=== PATIENT | female | born 1980 | race Asian ===

== ENCOUNTER 2017-01-17 06:22 | Emergency (ER) | payer OTHER ==
[2017-01-17 06:44] VITALS: BMI 23.8
[2017-01-17] MEDS ORDERED: KETOROLAC TROMETHAMINE 30 MG/1 ML VIAL ONE (07:10)
--- NOTE | 2017-01-17 07:23 | PDOC ---
History of Present Illness - General Chief Complaint: Shortness of Breath Stated Complaint: DIFFICULTY BREATHING History Source: Patient Exam Limitations: No Limitations - History of Present Illness Initial Comments: 01/17/17 07:22 Patient is a 37-year-old female with history of occasional asthma, cholecystectomy, hernia repair, complaining off right-sided chest pain 2 days. States the pain started in her right upper chest in the shoulder area, with pain on inspiration. This morning she had pain in the right mid lateral chest, which was an 8/10 and worse with breathing. States that she was having a difficult time taking a deep breath in due to the pain. States she has been exposed to family members had colds and bronchitis and pneumonia. She states she drove to [place] 7 hours during the . However denies leg swelling or pain. She had a brief asthma attack 1 days ago after drinking a beer which has sulfa in it. She is was on Macrobid for UTI completed her course of week ago. Denies fever, chills, nausea, vomiting, cough. PMD: Dr. Gloria PMHx: as above PSOCHX; neg cig, neg drug, neg etoh ALL: PCN, Sulfa GENERAL/CONSTITUTIONAL: [No fever or chills. No weakness. No weight change.] HEAD, EYES, EARS, NOSE AND THROAT: [No change in vision. No ear pain or discharge. No sore throat.] CARDIOVASCULAR: [No chest pain or shortness of breath.] RESPIRATORY: (+) cough, wheezing,(-) hemoptysis.] GASTROINTESTINAL: [No nausea, vomiting, diarrhea or constipation. No rectal bleeding.] GENITOURINARY: [No dysuria, frequency, or change in urination.] MUSCULOSKELETAL: [No joint or muscle swelling or pain. No neck or back pain.] SKIN AND BREASTS: [No rash or easy bruising.] NEUROLOGIC: [No headache, vertigo, loss of consciousness, or loss of sensation.] PSYCHIATRIC: [No depression or anxiety.] ENDOCRINE: [No increased thirst. No abnormal weight change.] HEMATOLOGIC/LYMPHATIC: [No anemia, easy bleeding, or history of blood clots.] ALLERGIC/IMMUNOLOGIC: [No hives or skin allergy. No latex allergy.] GENERAL: [The patient is awake, alert, and fully oriented, in mild painful distress with breathing] HEAD: [Normal with no signs of trauma.] EYES: [Pupils equal, round and reactive to light, extraocular movements intact, sclera anicteric, conjunctiva clear.] ENT: [Ears normal, nares patent, oropharynx clear without exudates. Moist mucous membranes.] NECK: [Normal range of motion, supple without lymphadenopathy, JVD, or masses.] LUNGS: [Breath sounds equal, clear to auscultation bilaterally. No wheezes, and no crackles.] HEART: [Regular rate and rhythm, normal S1 and S2 without murmur, rub.] ABDOMEN: [Soft, nontender, normoactive bowel sounds. No guarding, no rebound. No masses.] EXTREMITIES: [Normal range of motion, no edema. No clubbing or cyanosis. No cords, erythema, or tenderness.] NEUROLOGICAL: [Cranial nerves II through XII grossly intact. Normal speech, normal gait.] PSYCH: [Normal mood, normal affect.] SKIN: [Warm, Dry, normal turgor, no rashes or lesions noted.] Past History - Past Medical History Allergies/Adverse Reactions: Allergies Allergy/AdvReac Type Severity Reaction Status Date / Time latex Allergy Verified 01/17/17 06:35 Home Medications: Ambulatory Orders No Home Medications 0 dose .ROUTE UTDICT 02/28/12 Asthma: Yes COPD: No Other medical history: denies - Suicide/Smoking/Psychosocial Hx Smoking Status: Yes Smoking History: Never smoked Have you smoked in the past 12 months: No Number of Cigarettes Smoked Daily: 10 Information on smoking cessation initiated: No Hx Alcohol Use: No Drug/Substance Use Hx: No Substance Use Type: None *Physical Exam - Vital Signs Last Vital Signs Temp Pulse Resp BP Pulse Ox 98.2 F 70 20 142/96 97 01/17/17 06:35 01/17/17 06:35 01/17/17 06:35 01/17/17 06:35 01/17/17 06:35 ED Treatment Course - LABORATORY CBC & Chemistry Diagram: 01/17/17 07:05 01/17/17 07:05 - ADDITIONAL ORDERS Additional order review: Laboratory Results 01/17/17 07:39 Urine HCG, Qual Negative 01/17/17 07:05 RBC 4.35 MCV 90.6 MCHC 33.2 RDW 13.0 MPV 8.4 - RADIOLOGY Radiology Studies Ordered: Category Date Time Status CHEST PA & LAT [RAD] Stat Radiology 01/17/17 06:53 Ordered - Medications Given in the ED: ED Medications Discontinued Medications Generic Name Dose Route Start Last Admin Trade Name Leyda PRN Reason Stop Dose Admin Ketorolac Tromethamine 30 mg 01/17/17 06:54 01/17/17 08:06 Toradol Injection - IVPUSH 01/17/17 06:55 Not Given ONCE ONE Medical Decision Making - Medical Decision Making 01/17/17 08:09 Patient is a 37-year-old female with history of occasional asthma, cholecystectomy, hernia repair, complaining off right-sided chest pain 2 days. Patient is PERC neg but due to inspiratory pain and recent travel will r/o of PE - will do d-dimer, r/o asthma, chest wall pain, pleurisy labs, cxr endoresed to [facility] 01/17/17 08:12 *DC/Admit/Observation/Transfer Diagnosis at time of Disposition: Pleuritic chest pain - Referrals Referrals: Yola Whitley MD [Primary Care Provider] - - Patient Instructions - Post Discharge Activity
[2017-01-17 07:30] LABS: MCH 30.1 pg (25.7-33.7); MCHC 33.2 g/dl (32.0-36.0); MEAN CELL VOLUME 90.6 fl (80-96); MEAN PLT VOLUME 8.4 fl (7.5-11.1); PLATELET COUNT 233 K/MM3 (134-434); WHITE BLOOD COUNT 7.6 K/mm3 (4.0-10.0)
[2017-01-17] MEDS: KETOROLAC TROMETHAMINE 30 MG/1 ML VIAL IVPUSH ONE ×3 (08:02→11:03)
[2017-01-17 08:06] LABS: ALBUMIN 3.3 g/dl (3.4-5.0); ALK PHOS 79 U/L (45-117); ANION GAP 4 (8-16); CALCIUM 8.5 mg/dL (8.5-10.1); CO2 28 mmol/L (21-32); CREATININE 0.8 mg/dL (0.55-1.02); GLUCOSE,RANDOM 85 mg/dL (74-106); SGOT/AST 18 U/L (15-37); SGPT/ALT 27 U/L (12-78); TOT PROT 6.8 g/dl (6.4-8.2)
--- NOTE | 2017-01-17 08:55 | PDOC ---
*Physical Exam - Vital Signs Last Vital Signs Temp Pulse Resp BP Pulse Ox 98.2 F 70 20 142/96 97 01/17/17 06:35 01/17/17 06:35 01/17/17 06:35 01/17/17 06:35 01/17/17 06:35 - Physical Exam General Appearance: Yes: Nourished, Appropriately Dressed HEENT: positive: EOMI, MERRICK, Normal ENT Inspection, TMs Normal, Pharynx Normal Neck: positive: Supple. negative: Tender Respiratory/Chest: positive: Lungs Clear, Normal Breath Sounds. negative: Crackles, Rales, Stridor, Wheezing Cardiovascular: positive: Regular Rhythm, Regular Rate Gastrointestinal/Abdominal: positive: Normal Bowel Sounds, Flat, Soft. negative : Tender Musculoskeletal: positive: Normal Inspection Extremity: positive: Normal Capillary Refill, Normal Inspection, Normal Range of Motion Integumentary: positive: Normal Color, Dry, Warm Neurologic: positive: Fully Oriented, Alert, Normal Mood/Affect, Normal Response , Motor Strength /5 ED Treatment Course - LABORATORY CBC & Chemistry Diagram: 01/17/17 07:05 01/17/17 07:05 - ADDITIONAL ORDERS Additional order review: Laboratory Results 01/17/17 01/17/17 01/17/17 07:39 07:05 07:05 D-Dimer 283 H Sodium 139 Potassium 4.3 Chloride 107 Carbon Dioxide 28 Anion Gap 4 L BUN 8 Creatinine 0.8 Creat Clearance w eGFR > 60 Random Glucose 85 Calcium 8.5 Total Bilirubin 1.0 AST 18 ALT 27 Alkaline Phosphatase 79 Total Protein 6.8 Albumin 3.3 L Urine HCG, Qual Negative 01/17/17 07:05 RBC 4.35 MCV 90.6 MCHC 33.2 RDW 13.0 MPV 8.4 - RADIOLOGY Radiology Studies Ordered: Category Date Time Status CHEST CTA [CT] Stat CT Scan 01/17/17 08:43 Ordered - Medications Given in the ED: ED Medications Discontinued Medications Generic Name Dose Route Start Last Admin Trade Name Freq PRN Reason Stop Dose Admin Ketorolac Tromethamine 30 mg 01/17/17 06:54 01/17/17 08:06 Toradol Injection - IVPUSH 01/17/17 06:55 Not Given ONCE ONE Progress Note - Progress Note Progress Note: surgeon hr operations advisor paged to discuss the US results. discussed with and will come evaluate the patient pt is aware Medical Decision Making - Medical Decision Making 01/17/17 08:54 cc: right sided chest pain with deep breath and movement D dimer is elevated will get CT to r/o PE pt agrees with the plan pt refused pain meds 01/17/17 09:59 CT is negative, pt to take toradol for pain. Pt given the CT results and will discuss with her PMD tomorrow. will get the abd US as reccomended by radiologist 01/17/17 10:04 01/17/17 12:14 pt seen and examined in ER buy , would like repeat cmp, lipase and will be dc home with follow up *DC/Admit/Observation/Transfer Diagnosis at time of Disposition: Pleuritic chest pain - Discharge Dispostion Condition at time of disposition: Improved - Prescriptions Prescriptions: Docusate Sodium [Colace -] 100 mg PO TID #21 capsule Naproxen [Naprosyn -] 500 mg PO BID PRN #14 tablet PRN Reason: Pain - Referrals Referrals: Yola Whitley MD [Primary Care Provider] - Donavon Fulton MD [Staff Physician] - - Patient Instructions Additional Instructions: drink pleanty of fluids increase fiber in your diet colace stool softeners for constipation naprosyn for pain follow with the general surgeon if any pain continues or worsens Return to ER for any worsening symptoms - Post Discharge Activity
--- NOTE | 2017-01-17 11:40 | CONSULT ---
Consult Consult Specialty:: general surgery Referred by:: rima Reason for Consultation:: chest pain? s/p lap solo fluid collection - History of Present Illness Chief Complaint: right chest pain History of Present Illness: 37 yo female no significant PMH s/p laparoscopic appendectomy presented last night after acute onset right subcostal/ rib cage pain. The pain was severe achy and intermittent, it was also associated with right shoulder pain that has since resolved. She also reported the inability to take a deep breath when she was in pain. Pain in her chest is better now following toradol. Prior to the pain she was having intermittent coughing spells that she say were improving since last week. The week prior she had a productive cough, with greenish sputum in the morning where she would produce a chunky wad of sputum that cleared without treatment. Since her surgery she has very limited abdominal pain. She reports two days earlier she has a pain similar to her preoperative biliary colic, but less intense. She denied any fevers or chills or change in bowel habits. We were asked to assess after CT chest revealed a post op fluid collection in the gallbladder fossa. - History Source History Provided By: Patient Limitations to Obtaining History: No Limitations - Alcohol/Substance Use Hx Alcohol Use: No - Smoking History Smoking history: Never smoked Have you smoked in the past 12 months: No Aproximately how many cigarettes per day: 10 - Social History History of Recent Travel: No Home Medications - Allergies Allergies/Adverse Reactions: Allergies Allergy/AdvReac Type Severity Reaction Status Date / Time latex Allergy Verified 01/17/17 06:35 - Home Medications Home Medications: Ambulatory Orders No Home Medications 0 dose .ROUTE UTDICT 02/28/12 Docusate Sodium [Colace -] 100 mg PO TID #21 capsule 01/17/17 Naproxen [Naprosyn -] 500 mg PO BID PRN #14 tablet 01/17/17 Review of Systems - Review of Systems Constitutional: reports: Malaise (virus with a respiratory component last week now symptomaticlly improved). denies: Chills, Fever Eyes: denies: Blurred Vision, Recent Change in Vision HENT: denies: Difficult Swallowing, Throat Pain Neck: denies: Lumps, Swollen Glands Cardiovascular: denies: Chest Pain, Palpitations Respiratory: reports: Cough (productive cough one week ago, greenish sputum in AM) Gastrointestinal: reports: Constipation (reports straining to have BM). denies : Abdominal Pain Genitourinary: denies: Burning, Discharge Musculoskeletal: reports: Joint Pain (rib pain as described) Integumentary: denies: Lesions, Rash Neurological: denies: Change in LOC, Syncope Endocrine: denies: Unexplained Weight Gain, Unexplained Weight Loss Hematology/Lymphatic: denies: Easily Bruised, Excessive Bleeding Psychiatric: denies: Anxiety, Depression Physical Exam Vital Signs: Vital Signs Temperature 98.2 F 01/17/17 08:54 Pulse Rate 57 L 01/17/17 08:54 Respiratory Rate 18 01/17/17 08:54 Blood Pressure 100/59 01/17/17 08:54 O2 Sat by Pulse Oximetry (%) 98 01/17/17 08:54 Vital Signs Period Temp Pulse Resp BP Sys/Leo Pulse Ox Last 24 Hr 98.2 F-98.2 F 57-70 18-20 100-142/59-96 97-98 Constitutional: Yes: Well Nourished, No Distress, Calm Eyes: Yes: Conjunctiva Clear, EOM Intact HENT: Yes: Atraumatic, Normocephalic Neck: Yes: Supple, Trachea Midline Cardiovascular: Yes: Regular Rate and Rhythm, S1, S2 Respiratory: Yes: Regular, CTA Bilaterally. No: Cough, Diminished, Dullness, Rales, Wheezes Gastrointestinal: Yes: Normal Bowel Sounds, Soft, Other (healed scarsX4) ...Rectal Exam: Yes: Deferred Renal/: No: CVA Tenderness - Left, CVA Tenderness - Right Extremities: No: Cool, Cyanosis Edema: No Peripheral Pulses WNL: No Integumentary: Yes: Tattoos. No: Rash Wound/Incision: Yes: Clean/Dry, Well Approximated Neurological: Yes: Alert, Oriented, Cran Nerves II-XII Intact Psychiatric: Yes: Alert, Oriented Labs: CBC, BMP 01/17/17 07:05 01/17/17 07:05 Abnormal Lab Results 01/17/17 01/17/17 07:05 07:05 D-Dimer 283 H Anion Gap 4 L Albumin 3.3 L Imaging - Results Chest X-ray: Report Reviewed, Image Reviewed (normal CXR) Cat Scan: Report Reviewed, Image Reviewed (fluid collection in GB fossa, large amount of stool in the colon, no PE) Ultrasound: Report Reviewed, Image Reviewed (confirmed fluid collection in GB fossa) Problem List - Problems (1) Intra-abdominal collection Assessment/Plan: 37yo female with a post operative seroma in the gallbladder fossa that may have drained into ths right subdiaphragmantic areas after a coughing episode. elvevated dDimer, appropriately worked up for PE and ruled out. No need for further intervention this is likely as self limited process. Repeat CMP and lipase encourage to f/u with her PMD and surgeon if symtoms return or persist, occasionally dDimer elevation can herald malignancy but there are no clinical signs of that. anti-inflammatory pain medication as needed. Thank you for the opportunity to participate in the care of this patient. Code(s): R18.8 - OTHER ASCITES (2) Referred upper abdominal pain Code(s): R10.10 - UPPER ABDOMINAL PAIN, UNSPECIFIED (3) Other symptoms referable to shoulder joint Code(s): M25.9 - JOINT DISORDER, UNSPECIFIED (4) Pleuritic chest pain Code(s): R07.81 - PLEURODYNIA (5) Constipation Assessment/Plan: counseled to increase dietary fiber improved oral hydration stool softener (senakot or colace) Code(s): K59.00 - CONSTIPATION, UNSPECIFIED Qualifiers: Constipation type: unspecified constipation type Qualified Code(s): K59.00 - Constipation, unspecified
[2017-01-17 13:47] LABS: ALBUMIN 3.3 g/dl (3.4-5.0); ALK PHOS 78 U/L (45-117); ANION GAP 7 (8-16); BILIRUBIN,TOTAL 1.2 mg/dL (0.2-1.0); CALCIUM 8.7 mg/dL (8.5-10.1); CO2 29 mmol/L (21-32); CREATININE 0.7 mg/dL (0.55-1.02); GLUCOSE,RANDOM 82 mg/dL (74-106); SGOT/AST 20 U/L (15-37); SGPT/ALT 30 U/L (12-78); TOT PROT 6.7 g/dl (6.4-8.2)
[2017-01-17 14:44] VITALS: BP 106/68; PULSE 70; TEMP 97.8
== END 2017-01-17 14:44 | disposition home or self-care (01) ==
LOC: JER 06:22
PROC: 3E0333Z Introduction of Anti-inflammatory into Peripheral Vein, Percutaneous Approach (ICD-10-PCS; principal; 2017-01-17)
DX: K91.872 Postprocedural seroma of a digestive system organ or structure following a digestive system procedure (principal); R18.8 Other ascites; R07.81 Pleurodynia; M25.511 Pain in right shoulder; K59.00 Constipation, unspecified
CPT/HCPCS: 36415; 71020-TC; 71275-TC; 76705-TC; 80053; 83690; 84703; 85027; 85379; 96374; 99283-25